=== PATIENT | female | born 1985 | race Caucasian/White ===

== ENCOUNTER 2018-12-06 21:20 | Emergency (ER) | payer OTHER ==
[~2018-12-06] VITALS: Ht 157.5 cm; Wt 65.9 kg
[2018-12-06 21:24] VITALS: BP 140/83; PULSE 95; RESP 19; Ht 157.5 cm; Wt 65.9 kg
[2018-12-07] MEDS ORDERED: ONDANSETRON (ODT) 4 MG TAB ODT STA (00:37)
[2018-12-07] MEDS ORDERED: KETOROLAC 30 MG INJ IM STA (00:37)
[2018-12-07] MEDS ORDERED: morphine 4 MG/ML VIAL IM STA (00:37)
[2018-12-07] MEDS ORDERED: IBUP-1542 PO (03:02)
[2018-12-07] MEDS ORDERED: HYDR-4011 PO (03:02)
--- NOTE | 2018-12-07 03:05 | ERD ---
ER Documentation Chief Complaint Chief Complaint BACK PAIN WITH NAUSEA; NO UTI; NO KNOWN INJ X1DAY HPI 33-year-old female presents with low back pain starting tonight. She denies any history of injury, or inciting events. The pain radiates down her right buttock. She denies any bowel bladder incontinence, weakness. She denies any history of trauma, fevers, additional symptoms. ROS All systems reviewed and are negative except as per history of present illness. Medications Home Meds Active Scripts Ibuprofen* (Ibuprofen*) 600 Mg Tablet, 600 MG PO Q6, #20 TAB Prov:RUPERTO CARPENTER MD 12/07/18 Hydrocodone/Acetaminophen ([place] 5-325 Tablet) 1 Each Tablet, 1 TAB PO Q6H PRN for PAIN, #12 TAB Prov:RUPERTO CARPENTER MD 12/07/18 Allergies Allergies: Coded Allergies: No Known Allergy (Unverified , 12/06/18) PMhx/Soc Medical and Surgical Hx: pt denies Medical Hx, pt denies Surgical Hx Hx Alcohol Use: No Hx Substance Use: No Hx Tobacco Use: No Smoking Status: Never smoker FmHx Family History: No diabetes, No coronary disease, No other Physical Exam Vitals Vital Signs Date Temp Pulse Resp B/P (MAP) Pulse Ox O2 O2 Flow FiO2 Time Delivery Rate 12/06/18 99.9 95 19 140/83 100 21:24 (102) Physical Exam Const: No acute distress Head: Atraumatic Eyes: Normal Conjunctiva ENT: Normal External Ears, Nose and Mouth. Neck: Full range of motion. No meningismus. Resp: Clear to auscultation bilaterally Cardio: Regular rate and rhythm, no murmurs Abd: Soft, non tender, non distended. Normal bowel sounds Skin: No petechiae or rashes Back: No midline or flank tenderness. Tenderness L5-S1 area without deformities, midline tenderness. Positive straight leg raise on the right. Difficulty ambulating due to pain but no deficits or weakness. Ext: No cyanosis, or edema Neur: Awake and alert Psych: Normal Mood and Affect Results 24 hrs Laboratory Tests Test 12/07/18 01:11 12/07/18 01:16 Bedside Urine pH (LAB) 6.0 Bedside Urine Protein (LAB) Negative Bedside Urine Glucose (UA) Negative Bedside Urine Ketones (LAB) 1+ Bedside Urine Blood Negative Bedside Urine Nitrite (LAB) Negative Bedside Urine Leukocyte Esterase (L Negative POC Beta HCG, Qualitative NEGATIVE Current Medications Medications Dose Sig/Yves Start Time Status Last (Trade) Ordered Route PRN Stop Time Admin Dose Reason Admin Ketorolac 30 mg ONCE STAT 12/07/18 DC 12/07/18 Tromethamine IM 00:37 01:07 (Toradol) 12/07/18 00:38 Ondansetron 8 mg ONCE STAT 12/07/18 DC 12/07/18 HCl (Zofran ODT 00:37 01:03 Odt) 12/07/18 00:38 Morphine 4 mg ONCE STAT 12/07/18 DC 12/07/18 Sulfate IM 00:37 01:03 (morphine) 12/07/18 00:38 Procedures/MDM X-ray LS-Spine 3V Interpreted by me: Bones: No fracture, or lytic lesions Joints: No dislocation Foreign body: None. Impression-lumbar spine x-ray Urine is negative. HCG is negative. Patient was given Toradol 30 mg IM morphine 4 mg IM for acute pain. Patient presents with nontraumatic low back pain with without signs of epidural abscess, cauda equina syndrome, deficits, bacterial infection, additional concerning symptoms. She may have new onset sciatica. She will treated with [place], ibuprofen, instructions for exercises, primary care follow-up and return precautions for fevers, weakness, deficits, new worsening symptoms with primary care doctor this week. The patient was stable with no new complaints during the ER course. Clinically, there is no current evidence to suggest meningitis, sepsis, acute abdomen, pneumonia, stroke, acute coronary syndrome, pulmonary embolism, aortic dissection or any other emergent condition appearing to require further evaluation or hospitalization. Patient counseled regarding my diagnostic impression and care plan. Prior to discharge all questions answered. Pt agrees with treatment plan and understands strict return precautions. Pt is instructed to follow up with primary care provider within 24-48 hours. Precautionary instructions provided including instructions to return to the ER if not improving or for any worsening or changing symptoms or concerns. Departure Diagnosis: Primary Impression: Back pain Back pain location: low back pain Chronicity: acute Back pain laterality: right Sciatica presence: with sciatica Sciatica laterality: sciatica of right side Qualified Codes: M54.41 - Lumbago with sciatica, right side Condition: Stable Patient Instructions: Back Exercises, Lumbar, Back Pain W/ Sciatica Referrals: NO PRIMARY,CARE PHYSICIAN (PCP) Additional Instructions: X-ray normal. probablamnete disco o musculos . Cheque otro vez con dolan doctor primario en el proximo [place] or regresa para mas o nueva simptomas- fiebre. RUPERTO CARPENTER MD Dec 07, 2018 03:05
== END 2018-12-07 03:12 | disposition home or self-care (01) ==
LOC: FTE 21:20
DX: M54.41 Lumbago with sciatica, right side (principal)
CPT/HCPCS: 72100; 81003; 81025; 96372; J1885; J2270; Z7502; Z7610